=== PATIENT | female | born 1990 | race Caucasian/White ===

== ENCOUNTER 2020-04-16 16:27 | Emergency (ER) | payer OTHER, SELFPAY ==
[2020-04-16 17:00] VITALS: BP 129/73; BP 150/100; PULSE 140; PULSE 93; RESP 18; TEMP 36.2; O2SAT 50; O2SAT 93; BMI 33.0
--- NOTE | 2020-04-16 17:07 | PC.NURSE ---
patient a&ox3, denies si/hi, pt denies wanting help for addiction at this time, pt is tearful and is unsure how much heroin she used. vss, will continue to monitor.
[2020-04-16 17:12] VITALS: BP 141/84; PULSE 114; RESP 18; TEMP 36.7; O2SAT 95
--- NOTE | 2020-04-16 17:20 | ED_ITS ---
HPI - Overdose General Chief Complaint: Overdose Stated Complaint: od Time Seen by Provider: 04/16/20 17:20 Source: patient and EMS Mode of arrival: EMS Limitations: no limitations History of Present Illness HPI Narrative: 29-year-old female who is a formal drug abuser, patient has been clean from using drugs for the past 6 months, patient used a mixture of heroin and cocaine today multiple bags, patient was found in the bathroom of her friend passed out, CPR was started and EMS was called, on arrival to EMS CPR was in progress, patient received 4 mg of intranasal Narcan and started to respond. Patient emergency department been awake all time, stable vital signs except for tachycardia, patient is asking for water and p.o. intake. Related Data Allergies Allergy/AdvReac Type Severity Reaction Status Date / Time No Known Allergies Allergy Unverified 11/14/19 18:29 Review of Systems Review of Systems: All other systems are reviewed and are negative Constitutional: Reports as per HPI and Reports no additional constitutional complaints Eyes: Reports as per HPI and Reports no additional eye complaints Reports system reviewed and no additional complaints, except as documented Cardiovascular: Reports as per HPI and Reports no additional cardiovascular complaints Respiratory: Reports as per HPI and Reports no additional respiratory complaints Gastrointestinal: Reports as per HPI and Reports no additional gastrointestinal complaints Genitourinary: Reports no additional female genitourinary complaints Musculoskeletal: Reports no additional musculoskeletal complaints Skin/Breast: Reports system reviewed and no additional complaints, except as docu Psychiatric: Reports no additional psychiatric complaints Endocrine: Reports no additional endocrine complaints Hematologic/Lymphatic: Reports no additional hematologic/lymphatic complaints Allergic/Immunologic: Reports no additional allergic/immunologic complaints Reports system reviewed and no additional complaints, except as documented and Reports Abnormal speech present [facility] Past Medical History Medical History Anxiety Asthma Depression Social History Social History Alcohol intake: never Smoking Status: Current every day smoker Use of substances other than those prescribed or required for medical reasons: Yes Substance Use Type: Heroin Advance Directives: No Advance Directives Information Provided: No Physical Exam Vital Signs: Vital Signs: Last Vital Signs Temp 97.4 F 04/16/20 18:00 Pulse 95 04/16/20 18:00 Resp 18 04/16/20 18:00 BP 126/77 04/16/20 18:00 Pulse Ox 93 04/16/20 18:00 Body Mass Index 33.0 Vital signs have been reviewed as appeared to be correct. Blood pressure normal. Heart rate tachycardia. Respiration rate normal. Temperature normal. Oxygen saturation normal. Appearance: Alert. Oriented X3. No acute distress. Head: Normal external exam. Normocephalic. Atraumatic. No Russell signs noted. No raccoon eyes noted Eyes: PERRLA. EOMI. Conjunctiva and sclera normal. Eyelids normal. ENT: TM's Normal. Pharynx normal. Uvula midline. Moist mucous membranes. No trismus noted. No drooling noted. No muffled voice noted. Neck: Normal inspection. Neck supple. FROM. No adenopathy. Thyroid Normal. No meningeal signs. No neck mass noted. CVS: Normal heart rate and rhythm. Heart sound normal. No murmurs noted. Pulses normal throughout. Respiratory: No respiratory distress. Painless inspiration. Breath sounds normal. No wheezes/rales/rhonchi noted. Chest nontender. No accessory muscle usage noted or decreased air movement noted. Abdomen: Soft and nontender. Bowel sounds normal in all 4 quadrants. No distention noted. No organomegaly noted. No visible injury noted. Back: No CVA tenderness. Full range of motion noted. Skin: Skin warm and dry. Normal skin color. Normal skin turgor. No rashes/lesions/lacerations noted. Extremities: No lower extremity edema. Extremities exhibit normal range of motion. Extremities nontender. Neuro: Oriented X 3. No motor deficit. No sensory deficit. Reflexes normal. Patient Appearance: Appropriate Patient Orientation: Person, Place, Time and Situation Level of Consciousness: Awake, Appropriate and Alert Patient Behavior: Talkative, Cooperative. Mood Description: Appropriate Affect Description: Appropriate Patient Cognition Impaired: No Ability to Follow Directions: Good Speech Pattern: Spontaneous Speech Memory Description: Intact Hallucinations: None Delusions: Not Present Thought Process: Logical and rationale Thought Content: Appropriate Depressive Symptoms: None Judgement: Good Course Course Course Narrative: Assessment and plan: Non intentional Overdose on heroin/cocaine require Narcan at the scene patient now is awake and alert, no SI or HI or hallucination, patient remained up throughout her stay in the emergency department with stable vital signs except tachycardia for anxiety. MDM - Overdose Lab Data Attestation: I reviewed the patient's lab results. Labs: Lab Results 04/16/20 04/16/20 Range/Units 17:21 17:21 Urine Color YELLOW Urine Appearance CLEAR Urine pH 6.0 (5.0-8.0) Ur Specific [place] 1.025 (1.005-1.025) Urine Protein TRACE (NEG-TRACE) MG/DL Urine Glucose (UA) NEG (NEG) MG/DL Urine Ketones NEG (NEG) MG/DL Urine Blood NEG (NEG) Urine Nitrite NEG (NEG) Ur Leukocyte Esterase NEG (NEG) Urine Test NEGATIVE (NEGATIVE) Urine Opiates Screen POSITIVE H (Not Detect) Ur Barbiturates Screen Not Detected (Not Detect) Ur Phencyclidine Scrn Not Detected (Not Detect) Ur Amphetamines Screen Not Detected (Not Detect) U Benzodiazepines Scrn Not Detected (Not Detect) Urine Cocaine Screen POSITIVE H (Not Detect) U Marijuana (THC) Screen POSITIVE H (Not Detect) Discharge Plan Discharge Clinical Impression: Drug overdose Qualifiers: Encounter type: initial encounter Injury intent: accidental or unintentional Qualified Code(s): T50.901A - Poisoning by unspecified drugs, medicaments and biological substances, accidental (unintentional), initial encounter Patient Disposition: Home, Self-Care Instructions: Polysubstance Abuse (ED) Additional Instructions: Follow with your PCP when needed.
[2020-04-16 17:38] LABS: Glucose Urine UA NEG (NEG); Leukocyte Esterase Urine NEG (NEG); Nitrite Urine NEG (NEG); Specific Gravity - Urine 1.025 (1.005-1.025); Urine Blood NEG (NEG); Urine Ketones NEG (NEG); Urine Protein TRACE MG/DL (NEG-TRACE)
[2020-04-16 17:41] LABS: Appearance Urine CLEAR; Color Urine YELLOW
[2020-04-16 17:43] LABS: UPreg QC Valid YES; Urine Pregnancy NEGATIVE (NEGATIVE)
--- NOTE | 2020-04-16 17:53 | MHC.RECOVSUP ---
? Reason for consult Over Dose o Current location: 6h o Identified substance use concern: Heroin - Overdose - Support ? Intervention: o ATS bed search started/completed/in process o MAT started or to be started o Community resources provided o Harm reduction discussion ? Plan: o Patient to follow up with [facility] after discharge ? Additional information:Patient is at the ED for a over dose... Patient relapses after 6 years in recovery.. Patient stated that she started her recovery on MAT (Suboxone).. and that she has been doing well. Had a bad moment and it was free. Patient dose not want to start mat again but we did talk harm reduction.
[2020-04-16 17:59] LABS: Amphetamine Screen Urine Not Detected (Not Detect); Barbiturates, Urine Not Detected (Not Detect); Benzodiazepines Screen Urine Not Detected (Not Detect); Cannabinoid Screen Urine POSITIVE (Not Detect); Cocaine Screen Urine POSITIVE (Not Detect); Opiate Screen Urine POSITIVE (Not Detect); Phencyclidine Screen Urine Not Detected (Not Detect)
[2020-04-16 18:00] VITALS: BP 126/77; PULSE 95; RESP 18; TEMP 36.3; O2SAT 93
--- NOTE | 2020-04-16 18:12 | PC.NURSE ---
patient a&ox3, vss, no c/o pain or discomfort, will continue to monitor.
== END 2020-04-16 18:40 | disposition home or self-care (01) ==
PROVIDERS: Emergency Provider Emergency Medicine
DX: T40.1X1A Poisoning by heroin, accidental (unintentional), initial encounter (principal); T40.5X1A Poisoning by cocaine, accidental (unintentional), initial encounter; R00.0 Tachycardia, unspecified; Y92.002 Bathroom of unspecified non-institutional (private) residence as the place of occurrence of the external cause; F17.200 Nicotine dependence, unspecified, uncomplicated
CPT/HCPCS: 80307; 81003; 81025; 99284

== ENCOUNTER 2020-05-27 15:18 | Outpatient (REF) | payer OTHER, SELFPAY ==
[2020-05-27 17:37] LABS: MANUAL DIFF FLAG NO
[2020-05-27 17:39] LABS: Basophils Absolute Auto 0.1 X10*3/uL (0.0-0.2); Basophils Percent Auto 0.5 % (0-2); Eosinophils Absolute Auto 0.1 X10*3/uL (0.0-0.4); Eosinophils Percent Auto 1.3 % (0-4); Hematocrit 39.9 % (37-47); Hemoglobin 13.2 g/dl (12.0-16.0); Imm Gran Abs Auto 0.03 X10*3/uL (0.00-0.03); Imm Gran Pct Auto 0.3 % (0.0-0.4); Lymphocytes Absolute Auto 3.3 X10*3/uL (1.2-4.9); Lymphocytes Percent Auto 33.2 % (20-40); Mean Corpuscular HGB Conc 33.1 g/dl (31.0-35.0); Mean Corpuscular Hemoglobin 29.7 pg (27.0-33.0); Mean Corpuscular Volume 89.7 fL (80-98); Mean Platelet Volume 10.9 fL (9.4-12.3); Monocytes Absolute Auto 0.7 X10*3/uL (0.1-1.2); Monocytes Percent Auto 6.7 % (2-11); Neutrophils Absolute Auto 5.7 X10*3/uL (2.0-8.3); Platelet Count 311 X10*3/uL (160-400); Red Blood Count 4.45 X10*6/uL (4.20-5.50); Red Cell Distribution Width 13.2 % (11.0-16.0); White Blood Count 9.8 X10*3/uL (4.8-10.8)
[2020-05-27 17:56] LABS: Alanine Aminotransferase 16 U/L (0-31); Albumin Level 4.4 g/dL (3.5-5.0); Alkaline Phosphatase 63 U/L (39-117); Anion Gap 14 (12-20); Aspartate Amino Transferase 12 U/L (5-31); Bilirubin Total 0.2 mg/dL (0.0-1.0); Blood Urea Nitrogen 8 mg/dL (9-16); Calcium 9.2 mg/dL (8.4-10.2); Carbon Dioxide 24 mmol/L (22-29); Chloride 105 mmol/L (96-108); Estimated Glomerular Filt Rate > 60; Glucose Random 71 mg/dL (60-115); Iron 64 mcg/dL (30-160); Percent Iron Saturation 18 % (15-50); Potassium 4.3 mmol/L (3.3-5.1); Sodium 139 mmol/L (135-145); Total Iron Binding Capacity 358 mcg/dL (228-428); Total Protein 7.2 g/dL (6.5-8.0); Unsaturated Iron Binding 294 ug/dL
[2020-05-27 18:18] LABS: Ferritin 45 ng/mL (10-122); Vitamin D 25-OH Total 68.4 ng/mL (>30)
[2020-05-27 18:30] LABS: Folate > 20.0 ng/mL (> or = 4.0); Vitamin B12 498 pg/mL (200-900)
== END 2020-05-27 15:19 | disposition home or self-care (01) ==
LOC: HO.MANLDS 15:18
PROVIDERS: PCP Internal Medicine; Visit Provider Internal Medicine
DX: R53.83 Other fatigue (principal)
CPT/HCPCS: 36415; 80053; 82306; 82607; 82728; 82746; 83540; 84439; 85025

== ENCOUNTER 2022-08-26 09:50 | Outpatient (REF) | payer OTHER, SELFPAY ==
[2022-08-29 14:34] LABS: A. Phagocytphilium DNA,RT-PCR NOT DETECTED (NOT DETECTED); Babesia Microti DNA, RT-PCR NOT DETECTED (NOT DETECTED); Borrelia Miyamotoi,DNA RT-PCR NOT DETECTED (NOT DETECTED); E.Chaffeensis DNA RT-PCR NOT DETECTED (NOT DETECTED); Lyme(Borrelia ssp)DNA RT-PCR NOT DETECTED (NOT DETECTED)
== END 2022-08-26 09:51 | disposition home or self-care (01) ==
LOC: HO.MANLDS 09:50
PROVIDERS: Visit Provider Physician Assistant
DX: T14.8XXA Other injury of unspecified body region, initial encounter (principal); W57.XXXA Bitten or stung by nonvenomous insect and other nonvenomous arthropods, initial encounter
CPT/HCPCS: 36415; 87798; 87801

== ENCOUNTER 2024-05-17 15:47 | Outpatient (REF) | payer OTHER, SELFPAY ==
[2024-05-17 18:02] LABS: Estimated Average Glucose 120 mg/dL; Hemoglobin A1c % 5.8 % (<6.0)
[2024-05-17 18:21] LABS: Alanine Aminotransferase 28 U/L (0-31); Albumin Level 4.1 g/dL (3.5-5.0); Alkaline Phosphatase 78 U/L (39-117); Anion Gap 12 (12-20); Aspartate Amino Transferase 17 U/L (5-31); Bilirubin Total 0.2 mg/dL (0.0-1.0); Blood Urea Nitrogen 6 mg/dL (9-16); Calcium 9.1 mg/dL (8.4-10.2); Carbon Dioxide 24 mmol/L (22-29); Chloride 107 mmol/L (96-108); Estimated Glomerular Filt Rate > 60; Glucose Random 83 mg/dL (60-115); Potassium 3.7 mmol/L (3.3-5.1); Sodium 139 mmol/L (135-145); Total Protein 7.2 g/dL (6.5-8.0)
== END 2024-05-17 15:48 | disposition home or self-care (01) ==
LOC: HO.MANLDS 15:47
PROVIDERS: Visit Provider Internal Medicine
DX: R73.9 Hyperglycemia, unspecified (principal)
CPT/HCPCS: 36415; 80053; 83036